=== PATIENT | male | born 1985 | race Two or more races ===

== ENCOUNTER 2019-01-13 20:30 | Emergency (ER) | payer OTHER ==
[~2019-01-13] VITALS: Ht 170.2 cm; Wt 81.6 kg
[2019-01-13 20:45] VITALS: BP 164/86
[2019-01-13] MEDS ORDERED: fentaNYL CITRATE 100 MCG/2 ML VL IV ONE (22:45)
[2019-01-13] MEDS ORDERED: MIDAZOLAM HCL 5 MG/ML-1ML VIAL IV ONE (22:45)
== END 2019-01-14 01:17 ==
LOC: ER 20:33 → EEVIPCON 20:33 → ER 01-14 01:17
DX: S43.005A Unspecified dislocation of left shoulder joint, initial encounter (principal); I10 Essential (primary) hypertension; W22.8XXA Striking against or struck by other objects, initial encounter; Y93.89 Activity, other specified; Y99.8 Other external cause status; Y92.148 Other place in prison as the place of occurrence of the external cause
CPT/HCPCS: 23650; 73020; 73030; 94761; 96374; 99152; 99285; J2250; J3010